=== PATIENT | female | born 1985 | race Caucasian/White ===

== ENCOUNTER 2019-07-25 16:40 | Emergency (ER) | payer OTHER ==
[~2019-07-25] VITALS: Ht 167.6 cm; Wt 109.3 kg
[2019-07-25 16:44] VITALS: Ht 167.6 cm; Wt 109.3 kg
[2019-07-25 19:04] LABS: PLATELET COUNT 259 x10^3mcL (130-400)
[2019-07-25 19:09] LABS: BASOPHIL % 0 % (0-2)
[2019-07-25 19:14] LABS: UA SPECIFIC GRAVITY >=1.030 (1.005-1.035); microscopic required? YES; urine erythrocyte 1+ (NEGATIVE)
[2019-07-25 19:16] LABS: CALCIUM 8.3 mg/dL (8.5-10.1); CARBON DIOXIDE 24.4 mmol/L (21-32); CHLORIDE SERUM 102 mmol/L (98-107); CREATININE SERUM 0.6 mg/dL (0.6-1.0); GFR1 > 60 mL/min; GLUCOSE SERUM 86 mg/dL (74-106); POTASSIUM SERUM 3.4 mmol/L (3.5-5.1); SODIUM SERUM 138 mmol/L (136-145)
[2019-07-25 19:20] LABS: ALBUMIN 3.5 g/dL (3.4-5.0); ALKALINE PHOSPHATASE 44 U/L (46-116); ALT/SGPT 47 U/L (14-59); AST/SGOT 25 U/L (15-37); BILIRUBIN TOTAL 0.3 mg/dL (0.20-1.00); TOTAL PROTEIN, SERUM 7.8 g/dL (6.4-8.2)
[2019-07-25 22:21] VITALS: BP 130/80
== END 2019-07-25 22:10 | disposition home or self-care (01) ==
LOC: ED 16:40
PROVIDERS: Emergency Medicine
DX: O21.0 Mild hyperemesis gravidarum (principal); R53.1 Weakness; Z3A.01 Less than 8 weeks gestation of pregnancy; Z88.2 Allergy status to sulfonamides
CPT/HCPCS: 87804; J2765; J7030